=== PATIENT | female | born 1950 | race Caucasian/White ===

== ENCOUNTER → 2016-05-24 09:54 | Outpatient (CLI) | payer MEDICARE ==
[2011-01-20 12:29] VITALS: BMI 39.5
[~2016-05-24 09:54] MED LIST: HYDROCODONE-APA1 TAB PO; LEXAPRO10 MG PO; LOTREL 10/20 CA1 CAP PO
[2016-06-09 08:06] VITALS: BMI 42.1
== END | disposition home or self-care (01) ==
LOC: D.MRI 09:54
DX: M25.561 Pain in right knee (principal)

== ENCOUNTER → 2016-06-09 05:38 | Day surgery (SDC) | payer MEDICARE ==
[2016-06-08 14:19] LABS: HEMATOCRIT 41.6 % (36.0-48.0); HEMOGLOBIN 13.5 g/dL (12-16); MCH 26.4 pg (26.0-34.0); MCHC 32.5 g/dL (31.0-37.0); MCV 81.4 fL (80.0-100.0); MEAN PLATELET VOLUME 10.1 fL (7.4-10.4); RBC 5.11 10x6/uL (4.00-5.40); RDW 14.6 % (11.5-14.5); WBC 11.2 10x3/uL (4.8-10.8)
[~2016-06-09] VITALS: Ht 162.6 cm; Wt 111.1 kg
[2016-06-09 08:06] VITALS: BP 127/77; Ht 162.6 cm; Wt 111.1 kg
--- NOTE | 2016-06-09 11:48 | NUR ---
1135-ALBERTO FROM PACU. 1140-NATHALIE DELIVERED TO ROOM FROM [facility].
--- NOTE | 2016-06-09 13:07 | NUR ---
1814 DISCHARGE INSTRUCTIONS REVIEWED WITH PATIENT; VERBALIZED UNDERSTANDING
--- NOTE | 2016-06-13 10:12 | OP ---
PATIENT NAME: MATI MARIE MEDICAL RECORD: [id number] :48 LOCATION:[facility] ADMISSION DATE: SURGEON: KRISHAN ZEE MD DATE OF OPERATION: 06/09/2016 Orthopedic Surgery Operative Note PREOPERATIVE DIAGNOSIS: Medial meniscus tear of the right knee. POSTOPERATIVE DIAGNOSIS: Medial meniscus tear of the right knee, plus lateral meniscus tear. PROCEDURE: 1. Arthroscopic partial medial meniscectomy. 2. Arthroscopic partial lateral meniscectomy. SURGEON: Krishan Zee MD. ANESTHESIA: General. INTRAOPERATIVE COMPLICATIONS: None. 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 The lateral femoral condyle was relatively pristine. There were complex tears of the posterior horn of medial meniscus as well as a radial oblique tear of the lateral meniscus. OPERATIVE SUMMARY IN DETAIL: After obtaining the appropriate preoperative orthopedic surgery consent as well as anesthetic consultation, evaluation and clearance, the patient was brought to the operating room and placed on the operating table in supine position. After general laryngeal mask was administered, tourniquet was placed about the proximal aspect of the right lower extremity. Right lower extremity was then prepped and draped in routine sterile fashion. The leg was elevated and exsanguinated, tourniquet inflated to 350 mmHg. Routine inferolateral portal was established followed by superomedial portal and inferomedial portal. Diagnostic arthroscopy did reveal the above findings. Attention was first turned to the medial compartment. A combination of arthroscopic resector as well as meniscotome was utilized to debride the meniscus back to stable meniscal elements. A gentle chondroplasty was performed of the medial femoral condyle. The knee was then placed in the [id number]-[id number] position in the lateral compartment. The tearing of the lateral meniscus was noted. This was taken down using the arthroscopic resector. Having completed this, the knee was insufflated with 30 cc of 0.25% Marcaine with epinephrine and 80 mg of Depo-Medrol. Arthroscopy portals were closed in routine interrupted fashion using 4-0 Prolene. Sterile dressings were applied. The patient was awakened, taken to recovery room in stable condition. All final needle and sponge counts were correct. TRANSINT:[id number] Voice Confirmation ID: [id number] DOCUMENT ID: [id number] OPERATIVE REPORT [id number] MATI MARIE MD, KRISHAN LEWIS at 1012 CC: [id number] DICTATION DATE: 06/09/16 1104 [facility] [place]: 06/09/16 1553 [facility] 06/09/16 [place] [id number] [place] [id number]
== END | disposition home or self-care (01) ==
LOC: D.OPS 05:38 → D.PAN 12:30 → D.OPS 12:30
PROVIDERS: Anesthesiology
DX: S83.231A Complex tear of medial meniscus, current injury, right knee, initial encounter (principal); S83.281A Other tear of lateral meniscus, current injury, right knee, initial encounter